=== PATIENT | female | born 1995 | race Caucasian/White ===

== ENCOUNTER 2017-04-13 15:01 | Inpatient (IN) ==
[~2017-04-13 15:01] MED LIST: LACTATED RINGERS 1,000 ML IV SCH
[2017-04-13] MEDS ORDERED: ONDANSETRON 4 MG/2 ML VIAL IV PRN ×2 (15:14→19:16)
[2017-04-13] MEDS ORDERED: BUTORPHANOL 2 MG/ML VIAL IV PRN (15:18)
[2017-04-13] MEDS ORDERED: CITRIC ACID/SODIUM CITRATE 30 ML UDCUP PO ONE (15:19)
[2017-04-13] MEDS ORDERED: fentaNYL 2 MCG/ROPIV 0.2% EPID 150 ML EPIDURAL SCH (15:19)
[2017-04-13] MEDS ORDERED: diphenhydrAMINE 50 MG/1 ML VIAL IV PRN ×2 (15:19)
[2017-04-13] MEDS ORDERED: hydrOXYzine HCL 25 MG/1 ML VIAL IM PRN (15:19)
[2017-04-13] MEDS ORDERED: FAMOTIDINE 20 MG TABLET PO ONE (15:19)
[2017-04-13] MEDS ORDERED: ONDANSETRON 4 MG/2 ML VIAL IV ONE (15:19)
[2017-04-13] MEDS ORDERED: ePHEDrine 50 MG/ML AMP IV PRN (15:19)
[2017-04-13] MEDS ORDERED: LACTATED RINGERS 1,000 ML IV ONE (15:19)
[2017-04-13 15:27] LABS: Basophils % 0.2 % (0.0-0.8); Eosinophils % 0.1 % (0.00-10.9); Hematocrit 41.3 VOL% (35.7-47.0); Hemoglobin 14.2 GM/DL (12.0-16.0); Immature Granulocytes % 0.7 %; Immature Granulocytes Absolute 0.12 #; Lymphocytes # 1.7 10*3/uL (1.4-4.0); Lymphocytes % 10.3 % (21.3-54.2); Mean Corpuscular HGB Conc 34.4 GM/DL (32-36); Mean Corpuscular Hemoglobin 30 PG (27-34); Mean Corpuscular Volume 88.4 FL (87-102); Mean Platelet Volume 12.1 FL (9.6-12.0); Monocytes # 0.6 10*3/uL (0.11-0.8); Monocytes % 3.6 % (1.7-12.7); Neutrophils # 13.6 10*3/uL (1.4-7.4); Neutrophils % 85.1 % (38.7-73.9); Platelet Count 228 T/CUMM (130-400); Red Blood Count 4.67 MC/CUMM (3.8-5.5); Red Cell Distribution Width 14.6 % (9.3-17.3); White Blood Count 16.1 T/CUMM (4-12)
[2017-04-13 15:49] LABS: Alanine Aminotransferase 19 U/L (13-56); Albumin 2.8 G/DL (3.4-5.0); Alkaline Phosphatase 181 U/L (45-117); Aspartate Amino Transferase 19 U/L (0-37); Bilirubin,Total < 0.39 MG/DL (0.2-1.0); Blood Urea Nitrogen 12 MG/DL (7-18); Calcium 9.2 MG/DL (8.5-10.1); Glucose 91 MG/DL (74-106); Osmolality,Calculated 269.1 MOS/KG (273-304); Sodium 135 MMOL/L (136-145); Total Protein 7.2 G/DL (6.4-8.3)
[2017-04-13] MEDS: LACTATED RINGERS 1,000 ML IV SCH (15:53)
[2017-04-13] MEDS ORDERED: SUMAtriptan 6 MG/0.5 ML VIAL SUBCUT ONE (16:12)
[2017-04-13 16:59] LABS: Apearance,Urine CLEAR (Clear); Bacteria,Urine Occasional /HPF (Few); Bilirubin,Urine Negative (Negative); Blood, Urine Negative (Negative); Glucose,Urine (UA) Negative (Negative); Ketones,Urine 20 mg/dL (Negative); Mucus,Urine Occasional /LPF (Occasional); Nitrite,Urine Negative (Negative); Protein,Urine Negative; RBC,Urine 1 /HPF (0-4); Urine Color Yellow (Yellow); Urine Specific Gravity 1.013 (1.001-1.035); Urine Urobilinogen < 2.0 EU/DL (0.2-1.0)
[2017-04-13] MEDS ORDERED: OXYTOCIN/LR 20 UNIT/1,000 ML BAG IV SCH (17:00)
[2017-04-13] MEDS ORDERED: LIDOCAINE 1% 50 ML VIAL ONE (18:51)
[2017-04-13] MEDS ORDERED: ACETAMINOPHEN 325 MG TABLET PO PRN (19:16)
[2017-04-13] MEDS ORDERED: BISACODYL 10 MG SUPP RECTAL PRN (19:16)
[2017-04-13] MEDS ORDERED: RHO(D) IMMUNE GLOBULIN 300 MCG SYRINGE IM ONE (19:16)
[2017-04-13] MEDS ORDERED: LANOLIN 50% CREAM 0.3 OZ TUBE TOP PRN (19:16)
[2017-04-13] MEDS ORDERED: DIPH/TET/ACEL PERT BOOSTER VACCINE 0.5 ML VIAL IM ONE (19:16)
[2017-04-13] MEDS ORDERED: WITCH HAZEL PADS 100/JAR TOP PRN (19:16)
[2017-04-13] MEDS ORDERED: BENZOCAINE 20%/MENTHOL 0.5% SPRAY 56 GM CAN TOP PRN (19:16)
[2017-04-13] MEDS ORDERED: MEASLES/MUMPS/RUBELLA VACCINE 0.5 ML VIAL SUBCUT ONE (19:16)
[2017-04-13] MEDS ORDERED: oxyCODONE/ACETAMINOPHEN 5-325 MG TABLET PO PRN (19:16)
[2017-04-13] MEDS ORDERED: OXYTOCIN/LR 20 UNIT/1,000 ML BAG IV ONE (19:16)
[2017-04-13] MEDS ORDERED: HYDROCORTISONE 2.5% RECTAL CREAM 30 GM TUBE TOP PRN (19:16)
--- NOTE | 2017-04-13 19:20 | History and Physical Update ---
History and Physical Update - History and Physical H&P was reviewed, the patient examined and there: are no changes in the patients condition since last H&P was completed. - Dictation Physical: refer to scanned H&P - Physical Exam Mental Status: alert and oriented Heart: regular rate and rhythm Lung: clear to auscultation Abdomen: within normal limits Vitals: within normal limits History and Physical Changes: [id number] at 39w6d admitted in active labor. Onset of UCs at about 0300. Seen earlier in L&D with UCs and wished to be dismissed to home to observe for active labor. She returned to L&D within a few hours with progression of her dilation. No reported complications. GBS negative.
--- NOTE | 2017-04-13 19:24 | Operative Note ---
Date of procedure: 04/13/17 Pre-op diagnosis: 39w6d; active labor Post-op diagnosis: same Procedure: Delivery note. Patient progressed to complete and pushing with labor epidural and Pitocin augmentation and delivered a viable female over first degree perineal laceration. Baby was bulb suctioned. Cord was doubly clamped and cut and baby was placed on mother's abdomen. Cord blood was collected and placenta was delivered intact. Placenta was noted to be somewhat friable. Manual uterine exploration was performed with no placental or membranous fragments palpated. Laceration was repaired with 2-0 and 3-0 chromic with good approximation and hemostasis. Fundus is firm. Estimated blood loss 300 mL. Complications none. Patient is stable and the baby is stable. Anesthesia: epidural Surgeon / Physician: Radha Iyer Estimated blood loss: other (300cc) Specimens: other (placenta to path; cord blood to lab) Condition: stable Disposition: no change Results - Labs CBC & BMP: 04/13/17 15:22 04/13/17 15:22 Discharge Plan - Discharge Medications No Action No122/Iron/Folic Acid [ Multi Tablet] 1 tablet PO DAILY - Follow Up or Referral - Forms/Instructions
[2017-04-13] MEDS: BUTALBITAL/ACETAMIN/CAFFEINE 50-325-40 MG TABLET PO PRN (19:53)
[2017-04-13] MEDS: oxyCODONE/ACETAMINOPHEN 5-325 MG TABLET PO PRN (22:49)
[2017-04-14] MEDS: BUTALBITAL/ACETAMIN/CAFFEINE 50-325-40 MG TABLET PO PRN ×3 (00:28→08:29)
[2017-04-14] MEDS: IBUPROFEN 800 MG TABLET PO PRN ×3 (02:23→13:56)
[2017-04-14] MEDS: LACTATED RINGERS 1,000 ML IV SCH (05:50)
[2017-04-14 06:10] LABS: Basophils % 0.2 % (0.0-0.8); Eosinophils % 0.2 % (0.00-10.9); Hematocrit 40.4 VOL% (35.7-47.0); Hemoglobin 14.2 GM/DL (12.0-16.0); Immature Granulocytes % 0.7 %; Immature Granulocytes Absolute 0.12 #; Lymphocytes # 1.8 10*3/uL (1.4-4.0); Lymphocytes % 10.5 % (21.3-54.2); Mean Corpuscular HGB Conc 35.1 GM/DL (32-36); Mean Corpuscular Hemoglobin 31 PG (27-34); Mean Corpuscular Volume 86.9 FL (87-102); Mean Platelet Volume 12.2 FL (9.6-12.0); Monocytes # 1.1 10*3/uL (0.11-0.8); Monocytes % 6.5 % (1.7-12.7); Neutrophils # 13.8 10*3/uL (1.4-7.4); Neutrophils % 81.9 % (38.7-73.9); Platelet Count 178 T/CUMM (130-400); Red Blood Count 4.65 MC/CUMM (3.8-5.5); Red Cell Distribution Width 14.6 % (9.3-17.3); White Blood Count 16.9 T/CUMM (4-12)
[2017-04-14] MEDS: DOCUSATE SODIUM 100 MG CAPSULE PO SCH ×2 (08:29→21:50)
[2017-04-14] MEDS: oxyCODONE/ACETAMINOPHEN 5-325 MG TABLET PO PRN ×2 (08:33→13:54)
--- NOTE | 2017-04-14 11:45 | OB/GYN Progress Note ---
Assessment and Plan (1) Perineal laceration with delivery, first degree, delivered Status: Acute Assessment and plan: Routine care. Current Visit: Yes (2) Post-dural puncture headache Status: Acute Assessment and plan: Anesthesia in now to recheck the patient for possible need for blood patch. Current Visit: Yes GANG MINER - PN: Subj Interval history: C/o significant REBOLLAR since delivery. Meds not helping that she can tell. Otherwise normal lochia, voiding without difficulty, tolerating regular diet. Exam GANG MINER - Constitutional Vitals: Vital Signs Temp Pulse Resp BP Pulse Ox 04/14/17 11:26 97 F L 66 18 117/72 98 04/14/17 08:00 97 F L 76 18 127/75 99 04/14/17 04:00 97.2 F L 75 18 111/69 99 04/14/17 01:30 98.0 F 68 18 128/68 100 04/14/17 00:30 97.3 F L 73 18 117/63 98 04/13/17 23:59 97.8 F 66 18 124/78 99 04/13/17 23:30 97.7 F 67 18 123/72 97 04/13/17 23:00 97.3 F L 76 20 120/80 99 04/13/17 22:30 97.6 F 100 H 18 120/83 100 04/13/17 20:53 98.2 F 04/13/17 20:00 98.2 F 74 18 149/67 General appearance: normal weight, mild distress - Head Head exam: Present: normal inspection, normocephalic - Eye Eye exam: Present: EOMI - Respiratory Respiratory exam: Present: clear to auscultation bilaterally - Cardiovascular Cardiovascular exam: Present: regular rate and rhythm - GI/Abdominal GI/Abdominal exam: Present: soft (nontender) - Extremities Exam Extremities exam: Present: normal inspection - Neurological Exam Neurological exam: Present: alert, oriented X3 - Psychiatric Psychiatric exam: Present: normal affect, normal mood - Skin Skin exam: Present: normal color, warm Results - Labs CBC & BMP: 04/14/17 05:51 04/13/17 15:22 Lab Results: I have reviewed the past 24 hour labs
--- NOTE | 2017-04-14 12:39 | Anesthesia Procedures ---
Anesthesia Procedures - Epidural Position: sitting position Epidural procedure: sterile prep of the lumbar area, 18 G needle into, Negative for CSF and Heme, negative for paresthesia passed, test dose given and no systemic response. Sterile dressing applied (L3-4 tuohy for post dural puncture headache. 20 ml sterile blood injected, removed sterilly from left ac 18 gauge initiated sterilly per Dr. Iva Quinn)
--- NOTE | 2017-04-14 12:41 | Anesthesia Post-Op ---
Anesthesia Post OP - Post Ansesthetic Evaluation Patient seen in post op: Yes Resp: within normal limits CV: within normal limits Mental: within normal limits Temp: within normal limits Keli-Vv-[id number]: within normal limits Nausea and Vomiting: within normal limits Pain: within normal limits Other:: pt having s/s of pdph. Spoke with Dr. Iyer. d/w pt. decision to proceed with blood patch. blood patch procedure in pacu with Matilde Gann, Dr. Iva Quinn, and Maria Isabel Fuentes CRNA, full monitors. See note. Pt supine after procedure. Pt states headache gone. However, having muscle spasms in neck since delivery. Calling for possible muscle relaxant. Pt nikko procedure well.
[2017-04-14] MEDS: CYCLOBENZAPRINE 10 MG TABLET PO SCH ×3 (13:18→21:50)
[2017-04-14] MEDS ORDERED: INFLUENZA VIRUS VACCINE 0.5 ML SYRINGE IM ONE (15:23)
--- NOTE | 2017-04-15 08:37 | Discharge Summary ---
Hospital Course - Hospital Course Hospital Course: patient did well. She had quick return of bowel bladder function. She is consequently discharged on day #2 on a regular diet Specialty Discharge - Follow Up or Referrals Follow up with: Marko Bello MD [Physician] - Discharge Plan - Discharge Data Disposition: Disch To Home/Self Care Condition at Discharge: Stable Discharge Diet: regular diet Activity: resume usual activities as tolerated, other (Pelvic rest) Hygiene: may shower Weight Bearing at Discharge: full weight bearing Driving: no restrictions Contact your physician if you experience:: fever over 101, Difficulty voiding, Redness or swelling, Nausea/Vomiting, Shortness of breath, Bleeding, pain uncontrolled by pain medications - Discharge Medications New Acetaminophen Tab [Tylenol Tab] 650 mg PO Q6H PRN tablet PRN Reason: Fever > 100.4 Or Headache Benzocaine 20%/Menth 0.5% Spr [Dermoplast [place]] 1 spray TOP QID PRN PRN Reason: Pain Butalbital/Acet/Caff 50-325-40 [Fioricet 50-325-40 mg Tablet] 1 tablet PO Q4H PRN tablet PRN Reason: Headache HYDROcodone/ACETAMIN 5-325 [[place] 5-325] 1 tablet PO Q4H PRN #15 tablet PRN Reason: Abdominal Pain Hydrocortisone 2.5% Rectal Cr [Anusol HC Cream] 1 applic TOP QID PRN applic PRN Reason: Hemorrhoids Witch Rosa M Pads [Tucks Pads] 1 applic TOP Q4H PRN applic PRN Reason: Hemorrhoids Docusate Sodium Cap [Colace Cap] 100 mg PO BID capsule Ibuprofen Tab [Motrin Tab] 800 mg PO Q6H PRN tablet PRN Reason: Pain Moderate (4-7) Continue No122/Iron/Folic Acid [ Multi Tablet] 1 tablet PO DAILY - Follow Up or Referral Follow Up: Marko Bello MD [Physician] - 2 Weeks - Forms/Instructions Instructions: Perineal Care (DC), Vaginal Delivery (DC), Bleeding (DC) Exam - Constitutional Vitals: Period Temp Pulse Resp BP Sys/Nur Pulse Ox Last 24 Hr 97 F-98.4 F 63-85 18-20 114-125/62-78 97-99 DS: Provider Date of admission: 04/13/17 17:20 Primary care physician: . No PCP Attending physician on admission: Radha Iyer DO Consults: 04/13/17 15:14 Consult to Anesthesiology [CONS] Routine Consulting Provider: Reason for Anesthesiology: Epidural Consult Comment: Epidural for pain managment 04/13/17 19:16 Consult to [employer] Apprentice [employer] [CONS] Routine Consult [employer] App[employer]ice [employer]: Breast Feeding Discharging clinician: Abner Tomlinson Expected date of discharge: 04/15/17
[2017-04-15] MEDS: IBUPROFEN 800 MG TABLET PO PRN (09:21)
[2017-04-15] MEDS: CYCLOBENZAPRINE 10 MG TABLET PO SCH (09:21)
[2017-04-15] MEDS: DOCUSATE SODIUM 100 MG CAPSULE PO SCH (09:21)
[2017-04-15] MEDS ORDERED: INFLUENZA VIRUS VACCINE 0.5 ML SYRINGE IM ONE (10:15)
[2017-04-15 10:31] VITALS: BP 119/80
--- NOTE | 2017-04-16 10:18 | Pathology Report from [facility] ---
[employer] [employer] ACCESSION # : [id number] PATIENT NAME : Sebastián Santos ORDERING DR : CARLY GUTIÉRREZ DO CLINICAL HX: IUP @ 39.6 wks, vaginal delivery POST-OP DX: Same SPECIMEN INFO: Placenta GROSS DESCRIPTION: Received fresh labeled SEBASTIÁN SANTOS is a 373 gm placenta measuring 19.5 x 15.0 x 1.8 cm. The membranes are pink mclean and translucent. The umbilical cord measures 39.0 cm, contains three vessels and is eccentrically inserted. The surface is blue hawkins with a 9.5 cm rent area noted. The maternal surface is red hawkins with numerous calcifications seen. Sections submitted A- membranes and cord, B- and maternal surfaces. DIAGNOSIS FOR SEBASTIÁN SANTOS: PLACENTA, 39.6 WEEKS GESTATIONAL AGE, VAGINAL DELIVERY: Mature placenta, 373 gms trimmed weight. Trivascular umbilical cord, 39.0 cm in length. Unremarkable membranes. COLLECTED DATE: 04/15/2017 [facility] REPORT DATE: 04/16/2017 ELECTRONICALLY SIGNED BY: Mackenzie Montalvo M.D. 04/16/2017 - 9:38:53 [facility]
== END 2017-04-15 12:30 | disposition home or self-care (01) | DRG 775 ==
LOC: N.LDOUT 15:01 → N.LD 15:03 → N.OB 22:30
PROVIDERS: ADMIT Obstetrics & Gynecology; ATTEND Obstetrics & Gynecology